=== PATIENT | male | born 1990 | race African-American/Black ===

== ENCOUNTER 2019-05-31 12:17 | Inpatient (IN) ==
[2019-05-31] MEDS ORDERED: SODIUM CHLORIDE 0.9% 1,000 ML IV PRN (15:44)
[2019-05-31] MEDS ORDERED: ACETAMINOPHEN 325 MG TABLET PO PRN (16:06)
[2019-05-31 16:10] LABS: Basophils % 0.2 % (0.0-0.8); Eosinophils % 0.8 % (0.00-10.9); Hematocrit 21.3 VOL% (42.0-52.0); Hemoglobin 6.9 GM/DL (14.0-18.0); Immature Granulocytes % 0.2 %; Immature Granulocytes Absolute 0.01 #; Lymphocytes # 1.9 10*3/uL (1.4-4.0); Lymphocytes % 37.5 % (21.2-54.2); Mean Corpuscular HGB Conc 32.4 GM/DL (32-36); Mean Corpuscular Volume 90.6 FL (87-102); Mean Platelet Volume 9.2 FL (9.6-12.0); Monocytes % 6.5 % (1.7-12.7); Neutrophils % 54.8 % (38.7-73.9); Platelet Count 208 T/CUMM (130-400); Red Blood Count 2.35 MC/CUMM (3.8-5.5); Red Cell Distribution Width 13.6 % (9.3-17.3); White Blood Count 5.1 T/CUMM (4-12)
[2019-05-31] MEDS: SODIUM CHLORIDE 0.9% 1,000 ML IV SCH (16:30)
[2019-05-31 16:35] LABS: Alanine Aminotransferase 18 U/L (16-61); Albumin 3.2 G/DL (3.4-5.0); Alkaline Phosphatase 97 U/L (45-117); Aspartate Amino Transferase 12 U/L (0-37); Bilirubin,Total < 0.39 MG/DL (0.2-1.0); Blood Urea Nitrogen 23 MG/DL (7-18); Calcium 7.6 MG/DL (8.5-10.1); Estimated Glom Filtration Rate 140 ML/MIN; Glucose 115 MG/DL (74-106); Osmolality,Calculated 281.5 MOS/KG (273-304); Total Protein 6.4 G/DL (6.4-8.3)
[2019-05-31] MEDS: PHENYTOIN ER 100 MG CAPSULE PO SCH (20:02)
[2019-05-31] MEDS: TOPIRAMATE 200 MG TABLET PO SCH (20:03)
[2019-05-31] MEDS ORDERED: QUEtiapine 100 MG TABLET PO SCH (21:00)
[2019-05-31] MEDS: PANTOPRAZOLE 40 MG VIAL IV SCH (23:47)
[2019-06-01] MEDS: SODIUM CHLORIDE 0.9% 1,000 ML IV SCH (04:20)
[2019-06-01 05:07] LABS: Basophils % 0.5 % (0.0-0.8); Eosinophils # 0.1 10*3/uL (0.0-0.87); Eosinophils % 2.4 % (0.00-10.9); Hematocrit 21.8 VOL% (42.0-52.0); Hemoglobin 7.2 GM/DL (14.0-18.0); Immature Granulocytes % 0.2 %; Immature Granulocytes Absolute 0.01 #; Lymphocytes % 47.2 % (21.2-54.2); Mean Corpuscular Volume 89.7 FL (87-102); Mean Platelet Volume 8.9 FL (9.6-12.0); Neutrophils % 41.7 % (38.7-73.9); Platelet Count 150 T/CUMM (130-400); Red Blood Count 2.43 MC/CUMM (3.8-5.5); Red Cell Distribution Width 13.5 % (9.3-17.3); White Blood Count 4.2 T/CUMM (4-12)
[2019-06-01 05:38] LABS: Calcium 7.9 MG/DL (8.5-10.1); Osmolality,Calculated 291.4 MOS/KG (273-304); Risk Ratio 2.46
[2019-06-01] MEDS ORDERED: LIDOCAINE 100 MG/5 ML SYRINGE ONE (09:00)
[2019-06-01] MEDS ORDERED: PROPOFOL 200 MG/20 ML VIAL IV ONE (09:00)
[2019-06-01] MEDS ORDERED: VENLAFAXINE 100 MG TABLET PO SCH (09:00)
[2019-06-01] MEDS: PHENYTOIN ER 100 MG CAPSULE PO SCH (09:18)
[2019-06-01] MEDS: TOPIRAMATE 200 MG TABLET PO SCH (09:19)
[2019-06-01] MEDS: PANTOPRAZOLE 40 MG VIAL IV SCH (10:03)
[2019-06-01 11:46] VITALS: BP 125/81
[2019-06-01] MEDS ORDERED: SODIUM CHLORIDE 0.9% 1,000 ML IV PRN ×2 (13:59→14:18)
[2019-06-01 14:29] LABS: Hematocrit 24.6 VOL% (42.0-52.0); Hemoglobin 8.2 GM/DL (14.0-18.0)
== END 2019-06-01 15:50 | disposition home or self-care (01) | DRG 378 ==
LOC: N.5E 14:16 → SUATTDRO 14:16
PROVIDERS: ADMIT Internal Medicine; ATTEND Internal Medicine